=== PATIENT | male | born 1980 | race Caucasian/White ===

== ENCOUNTER 2023-07-22 12:20 | Emergency (ER) | payer OTHER ==
[2023-07-22 12:48] VITALS: TEMP 98.5; O2SAT 98
[2023-07-22 13:23] VITALS: BP 147/94; PULSE 76
--- NOTE | 2023-07-22 13:25 | ERPHSYRPT ---
- History of Present Illness Time Seen by Provider: 07/22/23 13:00 Source: patient Exam Limitations: no limitations Patient Subjective Stated Complaint: Pt had 2 teeth on the bottom right pulled this morning and he has had a swollen jaw prior to it and the dentist told him that it was cellulitis and had to go elsewhere to have it treated Triage Nursing Assessment: Pt brought to the ER by his fiance, vitals wnl, rates pain as 8/10, right side of jaw is swollen and was numbed with lidocaine by the dentist and it is starting to wear off, pt started amoxicillin yesterday prior to going to the dentist today Physician History: 42-year-old male presents to our ED for evaluation of possible oral cellulitis. Patient states that his dentist pulled to teeth in the right lower jaw. Patient currently on Augmentin. Patient reports that he is concerned that he may have oral cellulitis and that his dentist states that she cannot manage it. No other complaints. Pain described as an ache that is localized. No radiation. Pain worse with palpation of mastication. Pain improved with rest. No difficulty drinking swallowing or breathing. Patient voices no other complaints or concerns at this time. Portions of this note were created with voice recognition technology. There may be grammatical, spelling, punctuation or sound alike errors Timing/Duration: today Severity: moderate Modifying Factors: Improves With: ibuprofen Associated Symptoms: denies symptoms Allergies/Adverse Reactions: No Known Drug Allergies Allergy (Verified 07/22/23 12:48) Hx Tetanus, Diphtheria Vaccination/Date Given: No Hx Influenza Vaccination/Date Given: No Hx Pneumococcal Vaccination/Date Given: No Travel Risk - International Travel Have you traveled outside of the country in past 3 weeks: No - Coronavirus Screening Are you exhibiting any of the following symptoms?: No Close contact with a COVID-19 positive Pt in past 14-21 Days: No - Vaccine Status Have you recieved a Covid-19 vaccination: No - Review of Systems Constitutional: No Symptoms, No Fever, No Chills Eyes: No Symptoms Ears, Nose, & Throat: No Symptoms Respiratory: No Symptoms, No Cough, No Dyspnea Cardiac: No Symptoms, No Chest Pain, No Edema, No Syncope Abdominal/Gastrointestinal: No Symptoms, No Abdominal Pain, No Nausea, No Vomiting, No Diarrhea Genitourinary Symptoms: No Symptoms, No Dysuria Musculoskeletal: No Symptoms, No Back Pain, No Neck Pain Skin: No Symptoms, No Rash Neurological: No Symptoms, No Dizziness, No Focal Weakness, No Sensory Changes Psychological: No Symptoms Endocrine: No Symptoms Hematologic/Lymphatic: No Symptoms Immunological/Allergic: No Symptoms All Other Systems: Reviewed and Negative - Past Medical History Pertinent Past Medical History: Yes Cardiac History: Other Other Medical History: heart murmur - Past Surgical History Past Surgical History: Yes Musculoskeletal: Orthopedic Surgery Other Surgical History: broken left leg - Social History Smoking Status: Never smoker Exposure to second hand smoke: Yes Drug Use: none Patient Lives Alone: No - Nursing Vital Signs Nursing Vital Signs: Initial Vital Signs Temperature 98.5 F 07/22/23 12:38 Pulse Rate 72 07/22/23 12:38 Blood Pressure 137/95 07/22/23 12:38 O2 Sat by Pulse Oximetry 98 07/22/23 12:38 Pain Scale Pain Intensity 0 - Physical Exam General Appearance: no apparent distress, alert Eye Exam: PERRL/EOMI, eyes nml inspection Ears, Nose, Throat Exam: normal ENT inspection, TMs normal, pharynx normal, moist mucous membranes, other (Evidence of dental extraction tooth 28 29 no oral cellulitis. Uvula at midline. No sublingual masses. No open or draining lesions. There is swelling to the right lower jaw no fluctuance or areas that require drainage) Neck Exam: normal inspection, non-tender, supple, full range of motion Respiratory Exam: normal breath sounds, lungs clear, No respiratory distress Cardiovascular Exam: regular rate/rhythm, normal heart sounds, normal peripheral pulses Gastrointestinal/Abdomen Exam: soft, normal bowel sounds, No tenderness, No mass Back Exam: normal inspection, normal range of motion, No CVA tenderness, No vertebral tenderness Extremity Exam: normal inspection, normal range of motion, pelvis stable Neurologic Exam: alert, oriented x 3, cooperative, normal mood/affect, nml cerebellar function, nml station & gait, sensation nml, No motor deficits Skin Exam: normal color, warm, dry, No rash Lymphatic Exam: No adenopathy SpO2 Interpretation: normal SpO2: 98 O2 Delivery: Room Air - Course Nursing assessment & vital signs reviewed: Yes Ordered Tests: Medication Summary Discontinued Medications Generic Name Dose Route Start Last Admin Trade Name Freq PRN Reason Stop Dose Admin Hydrocodone Bitart/Acetaminophen 1 tab 07/22/23 13:26 07/22/23 13:28 Hydrocodone/Apap 5/325 1 Tab Tablet PO 07/22/23 13:27 Not Given STAT ONE - Progress Progress: improved Progress Note: 42-year-old male presents to our ED for possible oral cellulitis requiring drainage. Patient has no oral cellulitis. There is no fluctuance or any indication that drainage is indicated. Patient advised to continue his oral antibiotics which she has been on for only 1 day. [id number] analgesics as needed. A prescription for Cocoa was forwarded to patient's pharmacy. Patient agrees to follow-up with his primary care doctor within 48 hours for evaluation. Significant other at bedside. They voiced no other complaints or concerns at this time. Portions of this note were created with voice recognition technology. There may be grammatical, spelling, punctuation or sound alike errors Complexity problem addressed is low acute uncomplicated No critical care time Complex of data reviewed and analyzed is none. No specialized testing ordered. Diagnosis made based on history and physical exam. Risk of complication and or risk of morbidity/mortality of patient management is moderate. A prescription for Cocoa forwarded to patient's pharmacy Vital stable. Time spent to discharge patient is approximately 15 minutes. Plan of care established for shared decision making. No social determinants of health present to impede follow-up. Patient will follow-up with his primary care doctor within 48 hours for evaluation. Portions of this note were created with voice recognition technology. There may be grammatical, spelling, punctuation or sound alike errors 07/24/23 07:02 Counseled pt/family regarding: diagnosis, need for follow-up - Departure Departure Disposition: Home Clinical Impression: Jaw swelling, Pain, dental Condition: Stable Critical Care Time: No Referrals: DOCTOR,NO FAMILY [Primary Care Provider] - Follow up/PCP as directed IRENE ONTIVEROS DO [ACTIVE STAFF] - Follow up/PCP as directed Additional Instructions: Discharge/Care Plan JOSÉ MIGUELMARIBETHLUANNGERALDINE Karen was seen on 07/22/23 in the Emergency Room. The patient was counseled regarding Diagnosis,Lab results, Imaging studies, need for follow up and when to return to the Emergency Room. Prescriptions given: Discharge Note I have spoken with the patient and/or caregivers. I have explained the patient's condition, diagnosis and treatment plan based on the information available to me at this time. I have answered the patient's and/or caregiver's questions and addressed any concerns. The patient and/or caregivers have as good understanding of the patient's diagnosis, condition and treatment plan as can be expected at this point. The vital signs have been stable. The patient's condition is stable and appropriate for discharge from the emergency department. The patient will pursue further outpatient evaluation with the primary care physician or other designated or consulting physician as outlined in the discharge instructions. The patient and/or caregivers are agreeable to this plan of care and follow-up instructions have been explained in detail. The patient and/or caregivers have received these instruction. The patient/and or caregivers are aware that any significant change in condition or worsening of symptoms should prompt an immediate return to this or the closest emergency department or call 911. Prescriptions: Hydrocodone/APAP 5/325 [Cocoa 5/325 mg] 1 each PO Q6H PRN PRN 3 Days #14 tablet MDD 4 PRN Reason: Pain
[2023-07-22] MEDS ORDERED: NORCO 5/325 MG PO ONE (13:26)
== END 2023-07-22 13:41 | disposition home or self-care (01) ==
LOC: ED 12:20
DX: R22.0 Localized swelling, mass and lump, head (principal); K08.89 Other specified disorders of teeth and supporting structures; Z79.891 Long term (current) use of opiate analgesic; Z28.310 Unvaccinated for COVID-19
CPT/HCPCS: 99281